=== PATIENT | male | born 1960 | race Caucasian/White ===

== ENCOUNTER → 2024-09-19 15:45 | Outpatient (REF) | payer OTHER, SELFPAY | LOC: HWRAD 15:45 | PROVIDERS: ATTENDING PHYSICIAN Family Medicine | DX: R07.89 Other chest pain (principal); E78.2 Mixed hyperlipidemia | CPT/HCPCS: 71046 ==

== ENCOUNTER → 2024-10-26 08:10 | Outpatient (REF) | payer SELFPAY | LOC: HWRAD 08:10 | PROVIDERS: ATTENDING PHYSICIAN Internal Medicine Cardiovascular Disease; FAMILY PHYSICIAN Family Medicine | DX: E78.2 Mixed hyperlipidemia (principal); I10 Essential (primary) hypertension | CPT/HCPCS: 75571 ==

== ENCOUNTER → 2024-12-01 11:58 | Outpatient (REF) | payer OTHER, SELFPAY | LOC: DHSLP 11:58 | PROVIDERS: ATTENDING PHYSICIAN Family Medicine; FAMILY PHYSICIAN Family Medicine | DX: G47.33 Obstructive sleep apnea (adult) (pediatric) (principal) | CPT/HCPCS: 95800 ==